=== PATIENT | male | born 1985 | race Caucasian/White ===

== ENCOUNTER 2019-03-07 14:22 | Emergency (ER) | payer OTHER ==
[~2019-03-07] VITALS: Wt 110.0 kg
[2019-03-07 14:58] VITALS: BP 132/71; PULSE 71; RESP 18
--- NOTE | 2019-03-07 15:01 | ERD ---
ER Documentation Chief Complaint Chief Complaint PUNCTURE WOUND FROM ASSUALT 4 DAYS HPI 33-year-old male, right-handed, presents the emergency department, complaining of erythema, warmth and tenderness of the left forearm after sustaining a puncture wound with scissors 4 days ago. The patient denies fever, no chills, no distal weakness, numbness or tingling. ROS All systems reviewed and are negative except as per history of present illness. Medications Home Meds Active Scripts Bacitracin* (Bacitracin Zinc Oint*) 28.35 Gm Oint, 1 APPLIC TOP BID for 7 Days, TUB APPLI TO Prov:SANDRA ORTEGA MD 03/07/19 Ibuprofen* (Motrin*) 600 Mg Tab, 600 MG PO Q6H PRN for PAIN AND OR ELEVATED TEMP, #30 TAB Prov:SANDRA ORTEGA MD 03/07/19 Cephalexin* (Keflex*) 500 Mg Capsule, 500 MG PO BID for 7 Days, CAP Prov:SANDRA ORTEGA MD 03/07/19 Sulfamethoxazole/Trimethoprim* (Bactrim Ds* Tablet) 1 Each Tablet, 1 TAB PO BID, #14 TAB Prov:SANDRA ORTEGA MD 03/07/19 PMhx/Soc Medical and Surgical Hx: pt denies Medical Hx Hx Alcohol Use: Yes (Occasionally) Hx Substance Use: No Hx Tobacco Use: No Smoking Status: Never smoker FmHx Family History: No diabetes, No coronary disease Physical Exam Vitals Vital Signs Date Temp Pulse Resp B/P (MAP) Pulse Ox O2 O2 Flow FiO2 Time Delivery Rate 03/07/19 98.0 71 18 132/71 99 14:58 (91) Physical Exam Patient alert, oriented, vital signs stable. HEAD: Normocephalic, atraumatic. EYES: PERRLA, EOMI, Sclera and conjunctiva appear normal. NOSE: Clear and patent nostrils. EARS: Canals clear, tympanic membranes WNL. MOUTH: normal lips and tongue, no oral lesions. THROAT: Normal oropharynx, no tonsillar exudates. NECK: Supple, No lymphadenopathy. Full ROM without pain or tenderness. HEART: RRR, no rubs, murmurs, clicks or gallops. LUNGS: Clear to auscultation. ABDOMEN: Soft, non-tender without masses or hepatosplenomegaly. EXTREMITIES: Left forearm: Open wound, 1 cm, with surrounding erythema, warmth and tenderness. No definitive fluctuance, adequate radial pulse, no edema bilaterally. BACK: Full ROM, no deformity, normal back exam NEURO: Cranial nerves grossly intact, no motor or sensory deficit SKIN: No rashes, no petechia. Procedures/MDM Vital signs stable, the patient was evaluated for foreign body, open fracture, nerve/vascular/tendon injury. Neurovascular exam intact with soft compartments. Clinical presentation and physical exam consistent with local cellulitis without evidence of abscess formation. The patient is stable to be treated outpatient and will be discharged home with a Rx for Keflex, Bactrim and ibuprofen, some side effects of prescribed medications (headache, rash, nausea, vomiting, diarrhea, interactions with other medications) were reviewed. The patient was instructed to follow up with the primary care provider in the next 48h for wound check. If symptoms persist, worsen or new symptoms develop, then patient should return to the ED immediately. Instructions explained and given directly by me to the patient with acknowledgment and demonstrated understanding. Disclaimer: Inadvertent spelling and grammatical errors are likely due to EHR/dictation software use and do not reflect on the overall quality of patient care. Also, please note that the electronic time recorded on this note does not necessarily reflect the actual time of the patient encounter. Departure Diagnosis: Primary Impression: Puncture wound of left forearm Additional Impression: Infected puncture wound Condition: Stable Additional Instructions: Thank you very much for allowing us to participate in your care. Your health and safety is our top priority at [facility]. The evaluation in the emergency department has been done to rule out an acute emergency. Chronic, [id number] conditions may have not been evaluated; therefore, you need to follow up with a primary care provider in the next 48h. If symptoms persist, worsen or new symptoms develop, then patient should return to the ED immediately. Call your primary care doctor TOMORROW for an appointment during the next 2-4 days and bring all the information provided. Have prescriptions filled and follow precisely the directions on the label. If the symptoms get worse and your provider is unavailable, return to the Emergency Department immediately. SANDRA ORTEGA MD Mar 07, 2019 15:01
[2019-03-07] MEDS ORDERED: SULF1TAB31 PO (15:02)
[2019-03-07] MEDS ORDERED: CEPH-443 PO (15:02)
[2019-03-07] MEDS ORDERED: IBUP-1542 PO (15:02)
[2019-03-07] MEDS ORDERED: BACI28.34 TOP (15:02)
== END 2019-03-07 15:05 | disposition home or self-care (01) ==
LOC: E/R 14:22
DX: S51.832A Puncture wound without foreign body of left forearm, initial encounter (principal); L08.9 Local infection of the skin and subcutaneous tissue, unspecified; X99.8XXA Assault by other sharp object, initial encounter
CPT/HCPCS: 99283